=== PATIENT | female | born 1975 | race Caucasian/White ===

== ENCOUNTER → 2018-02-06 | Outpatient (CLI) | payer BC ==
[2018-02-06 16:35] LABS: ALBUMIN 3.7 gm/dl (3.4-5.0); ALKALINE PHOSPHATASE 57 U/L (45-117); ALT/SGPT 37 U/L (12-78); AST/SGOT 23 U/L (15-37); BLOOD UREA NITROGEN 15 mg/dl (7-18); CALCIUM 8.5 mg/dl (8.5-10.1); CARBON DIOXIDE 24 mmol/L (21-32); CREATININE 0.84 mg/dl (0.60-1.20); GLUCOSE 95 mg/dl (70-99); POTASSIUM 3.9 mmol/L (3.5-5.1); SODIUM 139 mmol/L (136-145); TOTAL PROTEIN 7.5 gm/dl (6.4-8.2)
[2018-02-06 16:39] LABS: HEMOGLOBIN A1C 7.1 % (4.5-5.6)
== END | disposition home or self-care (01) ==
LOC: C.LAB1850 14:15
PROVIDERS: ATTEND Internal Medicine Endocrinology, Diabetes & Metabolism
DX: E11.65 Type 2 diabetes mellitus with hyperglycemia (principal); E78.5 Hyperlipidemia, unspecified; M06.9 Rheumatoid arthritis, unspecified; E03.9 Hypothyroidism, unspecified